=== PATIENT | female | born 1985 | race Two or more races ===

== ENCOUNTER 2024-08-30 21:25 | Emergency (ER) | payer OTHER, SELFPAY ==
[2024-08-30 21:34] VITALS: BP 131/94; PULSE 70; TEMP 36.7; O2SAT 98; BMI 37.4
--- NOTE | 2024-08-30 21:59 | ED.ABDPAIN1 ---
HPI - Abdominal Pain General Chief Complaint: Abdominal Pain Stated Complaint: Abdominal Pain Time Seen by Provider: 08/30/24 21:52 Source: patient Mode of arrival: walk-in Limitations: no limitations History of Present Illness HPI narrative: patient states she was found to have an ectopic at the beginning of this month. She was treated with methotrexate at [facility] 08/11/24. Did have follow up HCG and states numbers decreased from 4000s to 400s. Describes passing large clots last week and believes she passed the baby. Still has some bleeding now but only after she urinates and wipes. She was also found to have an umbilical hernia. Today she noticed some bruising about the hernia and was afraid she was bleeding internally. No syncope or light headiness. No fever or nausea Related Data Home Medications ?Medication ?Instructions ?Recorded ?Confirmed acetaminophen 500 mg tablet 500 mg PO Q6H PRN fever or pain 08/30/24 08/30/24 (Acetaminophen Extra Strength) Allergies Allergy/AdvReac Type Severity Reaction Status Date / Time No Known Drug Allergies Allergy Verified 08/30/24 21:32 Review of Systems ROS Status of ROS 10 or more systems reviewed and unremarkable except as noted in history and below PFSH PFSH Social History Little interest or pleasure in doing things: not at all Feeling down, depressed, or hopeless: not at all Exam Constitutional Vital Signs, click to edit/add: Last Vital Signs Temp 98.1 F 08/30/24 21:34 Pulse 77 08/30/24 23:21 Resp 18 08/30/24 23:21 BP 138/96 H 08/30/24 23:21 Pulse Ox 99 08/30/24 23:21 O2 Del Method Room Air 08/30/24 21:34 Common normals: no apparent distress, oriented x3, no limitations, healthy appearing, alert and well nourished [facility] Common normals: normocephalic and head/scalp atraumatic Eye Common normals: PERRL, EOMs intact bilaterally and conjunctivae normal Respiratory Common normals: normal respiratory effort, no retractions, no use of accessory muscles and clear to auscultation bilaterally Cardio Common normals: regular rate, regular rhythm, S1 normal heart sound and S2 normal heart sound GI Common normals: Normal to inspection, nondistended, normoactive bowel sounds present, soft to palpation and non-tender Other: faint yellow bruising about the umbilicus Extremity Common normals: normal to inspection and full ROM Neuro Common normals: oriented x3, CN's II-XII intact bilaterally, moves all extremities and no focal motor deficits Psych Appearance: grossly normal Course Vital Signs Vital signs: Vital Signs Temperature 98.1 F 08/30/24 21:34 Pulse Rate 70 08/30/24 21:34 Respiratory Rate 18 08/30/24 21:34 Blood Pressure 131/94 H 08/30/24 21:34 Pulse Oximetry 98 08/30/24 21:34 Oxygen Delivery Method Room Air 08/30/24 21:34 Temperature 98.1 F 08/30/24 21:34 Pulse Rate 77 08/30/24 23:21 Respiratory Rate 18 08/30/24 23:21 Blood Pressure 138/96 H 08/30/24 23:21 Pulse Oximetry 99 08/30/24 23:21 Oxygen Delivery Method Room Air 08/30/24 21:34 MDM - Abdominal Pain MDM Narrative Medical decision making narrative: recent ectopic treated with methotrexate. Per history successful passing of products last week. Patient describes passing large clots as well. Now only bleeding when she wipes after urination. Has umbilical hernia and noticed some bruising of it that concerned her. CT with findingss of small suprumbilical ventral midline hernia containing fat along with mild strading suggestive of mild edema. Patient reassured and discharged home to followup with her PCP. Her quant. HCG was also checked and has decline from 4000s to 257 Lab Data Labs: Lab Results 08/30/24 08/31/24 Range/Units 22:15 00:05 WBC 8.7 (4.0-11.0) 10^3/uL RBC 3.62 L (4.20-5.40) 10^6/uL Hgb 11.7 L (12.0-16.0) g/dL Hct 34.2 L (36.0-48.0) % MCV 94.5 (81.0-99.0) fL MCH 32.3 (26.7-34.0) pg MCHC 34.2 (29.9-35.2) g/dL RDW 12.7 (11.0-15.0) % Plt Count 347 (150-450) 10^3/uL MPV 9.2 L (9.5-13.5) fL Neut % (Auto) 66.7 (43.0-75.0) % Lymph % (Auto) 23.8 (20.5-60.0) % [place]ett[place] % (Auto) 7.1 (1.7-12.0) % Eos % (Auto) 1.6 (0.9-7.0) % Baso % (Auto) 0.5 (0.2-2.0) % Neut # (Auto) 5.8 (1.4-6.5) 10^3/uL Lymph # (Auto) 2.1 (1.2-3.8) 10^3/uL Pettis # (Auto) 0.6 (0.3-0.8) 10^3/uL Eos # (Auto) 0.1 (0.0-0.7) 10^3/uL Baso # (Auto) 0.0 (0.0-0.1) 10^3/uL Abs Immat Gran (auto) 0.03 (0.00-0.03) 10^3/uL Imm/Tot Granulo (auto) 0.3 (0.0-0.5) % Sodium 140 (136-145) mmol/L Potassium 3.5 (3.5-5.1) mmol/L Chloride 102 (98-107) mmol/L Carbon Dioxide 26.5 (21.0-32.0) mmol/L Anion Gap 15.0 BUN 7.0 (7.0-18.0) mg/dL Creatinine 0.84 (0.55-1.02) mg/dL Est GFR ( Amer) >60 (>=60 mL/min/1.73m^2) Est GFR (Non-Af Amer) >60 (>=60 mL/min/1.73m^2) BUN/Creatinine Ratio 8.3 Glucose 95 (74-106) mg/dL Calcium 9.1 (8.5-10.1) mg/dL HCG, Quant 257 mIU/mL Urine Color Lt. yellow (YELLOW) Urine Clarity Clear (CLEAR) Urine pH 7.0 (5.0-9.0) Ur Specific [place] 1.010 (1.005-1.025) Urine Protein Negative (NEG/TRACE) mg/dL Urine Glucose (UA) Negative (NEGATIVE) mg/dL Urine Ketones Negative (NEGATIVE) mg/dL Urine Occult Blood Large A (NEGATIVE) Urine Nitrite Negative (NEGATIVE) Urine Bilirubin Negative (NEGATIVE) Urine Urobilinogen 0.2 (0.2-1.0) EU/dL Ur Leukocyte Esterase Negative (NEGATIVE) Urine RBC None seen (0-2) #/HPF Urine WBC 0-2 A (NONE SEEN) #/HPF Ur Squamous Epith Cells Rare (NONE/RARE) #/LPF Urine Crystals None seen (None Seen) #/HPF Urine Bacteria None seen (NONE SEEN) #/HPF Urine Casts None seen (NONE SEEN) #/LPF Urine Mucus None seen (NONE SEEN) Ur Culture Indicated? No Discharge Plan Discharge Chief Complaint: Abdominal Pain Clinical Impression: Hernia, umbilical Patient Disposition: Home, Self-Care Prescriptions / Home Meds: No Action acetaminophen [Acetaminophen Extra Strength] 500 mg tablet 500 mg PO Q6H PRN (Reason: fever or pain) Print Language: Setswana Instructions: Umbilical Hernia (ED) Additional Instructions: follow up with your doctor regarding treatment of your hernia Referrals: [facility] [Primary Care Provider] - 1 week
[2024-08-30 22:26] LABS: Basophils Percent Auto 0.5 % (0.2-2.0); Eosinophils Absolute Auto 0.1 10^3/uL (0.0-0.7); Eosinophils Percent Auto 1.6 % (0.9-7.0); Hematocrit 34.2 % (36.0-48.0); Hemoglobin 11.7 g/dL (12.0-16.0); Immature Granulocytes Abs Auto 0.03 10^3/uL (0.00-0.03); Immature Granulocytes Pct Auto 0.3 % (0.0-0.5); Lymphocytes Absolute Auto 2.1 10^3/uL (1.2-3.8); Lymphocytes Percent Auto 23.8 % (20.5-60.0); Mean Corpuscular HGB Conc 34.2 g/dL (29.9-35.2); Mean Corpuscular Hemoglobin 32.3 pg (26.7-34.0); Mean Corpuscular Volume 94.5 fL (81.0-99.0); Mean Platelet Volume 9.2 fL (9.5-13.5); Monocytes Absolute Auto 0.6 10^3/uL (0.3-0.8); Monocytes Percent Auto 7.1 % (1.7-12.0); Neutrophils Absolute Auto 5.8 10^3/uL (1.4-6.5); Neutrophils Percent Auto 66.7 % (43.0-75.0); Platelet Count 347 10^3/uL (150-450); Red Blood Count 3.62 10^6/uL (4.20-5.40); Red Cell Distribution Width 12.7 % (11.0-15.0); White Blood Count 8.7 10^3/uL (4.0-11.0)
[2024-08-30 22:47] LABS: BUN Creatinine Ratio 8.3; Calcium 9.1 mg/dL (8.5-10.1); Carbon Dioxide 26.5 mmol/L (21.0-32.0); Chloride 102 mmol/L (98-107); Estimated GFR (African America >60 (>=60 mL/min/1.73m^2); Estimated GFR (Non-African Ame >60 (>=60 mL/min/1.73m^2); Glucose 95 mg/dL (74-106); Potassium 3.5 mmol/L (3.5-5.1); Sodium 140 mmol/L (136-145)
[2024-08-30 22:48] LABS: HCG Quantitative 257 mIU/mL
[2024-08-30 23:21] VITALS: BP 138/96; PULSE 77; O2SAT 99
--- NOTE | 2024-08-30 23:26 | PC.NURSE ---
this patient is awake and alert sitting upright on the bed watching basketball game with boyfriend, who just arrived from work. this patient has been informed that now we are waiting on ct results to come back. this patient voices no concerns and shows no signs of distress
[2024-08-31 00:19] LABS: Bilirubin Urine NEGATIVE (NEGATIVE); Blood Urine LARGE (NEGATIVE); Clarity Urine CLEAR (CLEAR); Color Urine LT. YELLOW (YELLOW); Glucose Urine UA NEGATIVE (NEGATIVE); Ketones Urine NEGATIVE (NEGATIVE); Leukocyte Esterase Urine NEGATIVE (NEGATIVE); Nitrite Urine NEGATIVE (NEGATIVE); Protein Urine NEGATIVE (NEG/TRACE); Urobilinogen Urine 0.2 EU/dL (0.2-1.0)
[2024-08-31 00:25] LABS: Bacteria Urine NONE SEEN #/HPF (NONE SEEN); Cast Seen? NONE SEEN #/LPF (NONE SEEN); Crystals Seen? None Seen #/HPF (None Seen); Mucus Urine NONE SEEN (NONE SEEN); RBC Urine NONE SEEN #/HPF (0-2); Squamous Epithelial Cell Urine RARE #/LPF (NONE/RARE); Urine Culture Indicated NO; WBC Urine 0-2 #/HPF (NONE SEEN)
[2024-08-31 00:52] VITALS: BP 122/85; PULSE 75; TEMP 36.7; O2SAT 98
--- NOTE | 2024-08-31 00:59 | PC.NURSE ---
i gave this patient verbal and written discharge orders and this patient voices yes to understanding these discharge orders. at time of discharge this patient voices no concerns and shows no signs of distress
== END 2024-08-31 00:51 | disposition home or self-care (01) ==
PROVIDERS: Emergency Provider Internal Medicine
DX: K42.9 Umbilical hernia without obstruction or gangrene (principal)
CPT/HCPCS: 36415; 74177; 80048; 81001; 84702; 85025; 99285; Q9967